=== PATIENT | female | born 1990 | race Caucasian/White ===

== ENCOUNTER 2016-09-23 18:28 | Emergency (ER) | payer MEDICAID ==
[~2016-09-23] VITALS: Ht 160 cm; Wt 94.5 kg
[2016-09-23 18:33] VITALS: BP 111/58
[2016-09-23] MEDS ORDERED: PRENATAL1 TA7 PO (18:37)
[2016-09-23] MEDS ORDERED: AMOXICILLIN 8751 TAB PO (19:36)
[2016-09-23 19:42] VITALS: TEMP 101
[2016-09-23 19:52] VITALS: PULSE 99
== END 2016-09-23 19:54 | disposition home or self-care (01) ==
LOC: COL.ER 18:28
DX: O99.511 Diseases of the respiratory system complicating pregnancy, first trimester (principal); Z3A.09 9 weeks gestation of pregnancy; J02.9 Acute pharyngitis, unspecified

== ENCOUNTER 2017-04-09 09:20 | Inpatient (IN) | payer MEDICAID ==
[~2017-04-09] VITALS: Ht 157.5 cm; Wt 103.2 kg
[~2017-04-09 09:20] MED LIST: AMOXICILLIN 8751 TAB PO; PRENATAL1 TA7 PO
[2017-04-24] VITALS (39 sets, daily range): BP systolic 95–137; BP diastolic 52–92; PULSE 65–93; TEMP 97.3–98.1
[2017-04-24 08:30] LABS: BASO % 0.1 % (0.0-2.0); EOS % 0.3 % (0-4.0); GRAN # 5.3 (1.4-6.5); GRAN % 76.8 % (42.2-75.2); LYMPH # 1.2 (1.2-3.4); LYMPH % 16.8 % (20.0-51.0); MEAN CELL VOLUME 86 fl (80.0-100.0); MEAN CORPUSCULAR HGB CONC 32 g/dl (33.0-37.0); MEAN PLATELET VOLUME 12.3 fl (7.4-10.4); MONO # 0.4 (0.1-0.6); MONO % 5.4 % (1.7-9.3); PLATELET COUNT 132 K/mm3 (130-400); RED BLOOD COUNT 3.86 M/mm3 (4.10-5.30); REDCELL DISTRIBUTION WIDTH-CV 14.4 % (11.5-14.5)
[2017-04-24 08:40] LABS: HEMATOCRIT 33.3 % (37.0-47.0); HEMOGLOBIN 10.8 g/dl (12.5-16.0); MEAN CORPUSCULAR HEMOGLOBIN 28 pg (27.0-31.0)
[2017-04-24] MEDS ORDERED: PERCOCET 325 MG1 TA2 PO (09:23)
[2017-04-24] MEDS ORDERED: MOTRIN 800800 MG/TAB PO (09:23)
[2017-04-25 07:45] VITALS: BP 121/60; PULSE 81; TEMP 98.5
[2017-04-25 16:10] VITALS: BP 113/80; PULSE 66; TEMP 97.7
[2017-04-25 20:30] VITALS: BP 117/62; PULSE 67; TEMP 97.7
[2017-04-26 07:06] VITALS: BP 114/71; PULSE 67; TEMP 98
== END 2017-04-26 16:30 | disposition home or self-care (01) | DRG 775 ==
LOC: LDR 04-24 06:51 → OB 04-24 16:45 → EDSTATUS 05-01 06:31 → LDRO 05-01 09:19
PROVIDERS: Obstetrics & Gynecology
PROC: 10E0XZZ Delivery of Products of Conception, External Approach (ICD-10-PCS; principal; 2017-04-24)
PROC: 0HQ9XZZ Repair Perineum Skin, External Approach (ICD-10-PCS; 2017-04-24)
DX: O99.824 Streptococcus B carrier state complicating childbirth (principal); O69.2XX0 Labor and delivery complicated by other cord entanglement, with compression, not applicable or unspecified; O70.0 First degree perineal laceration during delivery; Z3A.39 39 weeks gestation of pregnancy; Z37.0 Single live birth
CPT/HCPCS: J2540; J2590; J7060; J7120

== ENCOUNTER 2018-03-10 11:00 | Outpatient (CLI) | payer MEDICAID ==
[~2018-03-10] VITALS: Ht 160 cm; Wt 115.9 kg
[~2018-03-10 11:00] MED LIST changes: +MOTRIN 800800 MG/TAB PO; +PERCOCET 325 MG1 TA2 PO
[2018-03-10 11:20] VITALS: BP 109/67; PULSE 120; TEMP 99.2
[2018-03-10] MEDS ORDERED: ZOLOFT 100MG100 MG PO (11:28)
[2018-03-10 11:30] VITALS: BP 109/67; PULSE 107; TEMP 99.2
[2018-03-10 12:00] VITALS: BP 109/67; PULSE 120
[2018-03-10 13:32] VITALS: BP 117/59; PULSE 111
== END 2018-03-10 13:40 | disposition home or self-care (01) ==
LOC: LDRO 11:00 → LDR 13:15 → LDRO 13:40
DX: O62.9 Abnormality of forces of labor, unspecified (principal); Z3A.34 34 weeks gestation of pregnancy

== ENCOUNTER 2018-04-06 19:39 | Outpatient (CLI) | payer MEDICAID ==
[~2018-04-06] VITALS: Ht 160 cm; Wt 114.1 kg
[~2018-04-06 19:39] MED LIST changes: +ZOLOFT 100MG100 MG PO
--- NOTE | 2018-04-06 19:45 | NUR ---
Pt arrives to hospital by wheelchair with complaint of contractions every 5 minutes apart and passing a quarter size blood clot at home. Pt is a and is 38 weeks and 1 day. Has had all vaginal deliveries with no complications. Pt oriented to room. Clean gown on. EFM and toco explained and applied. Plan of care reviewed. Vital signs obtained and admission assessment started. 1950/-[address] Wellington on unit and notified.
[2018-04-06 20:15] VITALS: BP 111/68; PULSE 99; TEMP 98.3
[2018-04-06 20:30] VITALS: BP 107/57; PULSE 96
[2018-04-06 20:45] VITALS: BP 105/55; PULSE 89
--- NOTE | 2018-04-06 20:51 | NUR ---
SVE unchanged from previous exam. No bright red blood noted on chux. Old blood on check glove. Dr. Wellington notified, see physician notification.
[2018-04-06 21:05] VITALS: BP 134/78; PULSE 92
--- NOTE | 2018-04-06 21:05 | NUR ---
Pt ok to discharge home at this time. When discussing discharge instructions, pt became very upset stating that she was really wanting to get checked out by a doctor. Explained to patient that when you come in as a labor check, a nurse sees the patient and reports off to doctor. Explained to patient that the doctors only come in if there is something wrong and patient and baby are stable at this time. Pt not happy with discharge orders but is agreeable to discharge home. Return precautions reviewed, pt verbalized understanding. Pt seen ambulating off unit with family.
== END 2018-04-06 21:15 | disposition home or self-care (01) ==
LOC: LDRO 19:39 → LDR 20:06 → LDRO 21:15
DX: O62.9 Abnormality of forces of labor, unspecified (principal); Z3A.38 38 weeks gestation of pregnancy
CPT/HCPCS: OP

== ENCOUNTER 2018-04-07 06:09 | Inpatient (IN) | payer MEDICAID ==
[2018-04-07] VITALS (28 sets, daily range): BP systolic 103–138; BP diastolic 55–81; PULSE 72–96; TEMP 97.5–98.8
[~2018-04-07] VITALS: Ht 160 cm; Wt 113.9 kg
--- NOTE | 2018-04-07 06:37 | NUR ---
0605 PT ARRIVES VIA WC WITH PAINFUL CONTRACITONS. TO BED GOWN ON AND MONITORS PLACED. SVE SHOWS [address] BRIGHT AND DR INGRAM CALLED AND ORDERS REC'D BY Oscar BEARD. 0625 IV STARETED .LABS OBTAINED. 0630 VANCOMYCIN STARTED VIA PUM P.
[2018-04-07 06:49] LABS: BASO % 0.2 % (0.0-2.0); GRAN # 10.1 (1.4-6.5); GRAN % 83.2 % (42.2-75.2); HEMATOCRIT 35.3 % (37.0-47.0); HEMOGLOBIN 11.6 g/dl (12.5-16.0); LYMPH # 1.2 (1.2-3.4); LYMPH % 10.1 % (20.0-51.0); MEAN CELL VOLUME 84 fl (80.0-100.0); MEAN CORPUSCULAR HEMOGLOBIN 28 pg (27.0-31.0); MEAN CORPUSCULAR HGB CONC 33 g/dl (33.0-37.0); MEAN PLATELET VOLUME 12.3 fl (7.4-10.4); MONO # 0.7 (0.1-0.6); PLATELET COUNT 127 K/mm3 (130-400); REDCELL DISTRIBUTION WIDTH-CV 14.1 % (11.5-14.5)
--- NOTE | 2018-04-07 08:19 | NUR ---
0700 REID GRUBER TO GET PT COMFORTABLE WITH EPIDURAL PLACEMENT.
--- NOTE | 2018-04-07 08:21 | NUR ---
0702 Wade MORRISON HERE AND PT SET UP FOR EPIDURAL PLACEMENT. 0713 SINGLE SHOT DOSE GIVEN AND PT TOLERATED WELL. 0720 PT REPOSITIONED IN BED WITH PILLOW UNDER RT HIP.
--- NOTE | 2018-04-07 08:42 | NUR ---
PT SLEEP[ING QUIETLY.
--- NOTE | 2018-04-07 08:45 | NUR ---
0815 DR DOS SANTOS NOTIFIED VIA PC TO Sharad SARMIENTO CRNA REGARDING PT PRESENCE ON UNIT AND STATUS.
--- NOTE | 2018-04-07 08:46 | NUR ---
0858 DR INGRAM REACHED BY PHONE AND IS AVAILALBE FOR DELIVERY IF NEEDED PRIOR TO DR DOS SANTOS BEING DONE WITH GÉNESIS. STATUS REPORT GIVEN.
--- NOTE | 2018-04-07 10:12 | NUR ---
0930 Continues to be comfortable and sleeping quietly
--- NOTE | 2018-04-07 10:14 | NUR ---
1005 CISNEROS CATH PLACED WITH RETURN OF TANIA URINE. SVE SHOWS NOW COMPLTE BUT PRESENTING PART STILL -2. BOW INTACT AND BULGES WITH CONTRACTIONS.
--- NOTE | 2018-04-07 12:29 | NUR ---
1055 DR DOS SANTOS ON UNIT
--- NOTE | 2018-04-07 12:31 | NUR ---
1110 DR DOS SANTOS IN ROOM. 1114 AROM WITH RETURN OF CLEAR FLUID. PRESENTING PART STILL -2.
--- NOTE | 2018-04-07 12:34 | NUR ---
1125 SVE SHOWS PRESENTING PRT NOW +2 STATION WITH PRESSURE NOTED BY PT. NO STRONG URGE TO PUSH. 1137 DR DOS SANTOS ON UNIT AND INTO ROOM FOR DELIVERY. CISNEROS CATH REMOVED EASILY WITH TIP INTACT 1138 PT SET UP FOR DELIVERY AND PERINEUM PREPPED WITH SOAPY WATER. NSY NOTIFIED. 1141 DELIVERY OF MALE WITH ONE PUSH. SPONT RESP NOTED. INFANT BULB SUCTIONED. DRIED AND PLACED ON MOM'S ABD. CORD CLAMPED AND CUT. FURTHER ATTENTION OF INFANT BY ROSI RN. 1143 PITOCIN STARTED AT 333mU/MIN VIA PUMP AND PLACENTA DELIVERS SPONT AND INTACT. INFANT TO WARMER PER MOM'S REQUEST. DECLINES SKIN TO SKIN. 1145 SMALL 1ST DEGREE LAC BEING REPAIRED. 1155 REPAIR COMPLETED. ICE PACK TO PERINEUM. BED TOGETHER AND WARM BLANKETS PROVIDED. 1205 TALKING ON PHONE WHILE FAMILY MEMEBER HOLDS . MOTRIN 600 MG PO FOR CONTROL OF PAIN.
--- NOTE | 2018-04-07 13:00 | NUR ---
1215 VISITS ON P[JUAN WITH FAMILY MEMBER
--- NOTE | 2018-04-07 13:00 | NUR ---
1230 FEEDING INFANT BOTTLE. DENIES NEEDS.
--- NOTE | 2018-04-07 13:01 | NUR ---
4954 FAMILY IN TO SEE PT AND .
--- NOTE | 2018-04-07 16:07 | NUR ---
1420 IV TO INT. EPIDRUAL CATH REMOVED. ASSITED TO BR TO VOID AND PERICARE AND TUCK INSTRUCTIONS GIVEN. CLEAN GOWN ON AND TRANSFERRED TO 214 VIA . ORIENTATED TO SURROUNDING.
--- NOTE | 2018-04-07 16:07 | NUR ---
1345 EATING LUNCH. DENIES NEEDS.
[2018-04-08 00:30] VITALS: BP 92/55; PULSE 75; TEMP 97.8
[2018-04-08 04:15] VITALS: BP 88/46; PULSE 75; TEMP 97.6
[2018-04-08] MEDS ORDERED: MOTRIN 800800 MG/TAB PO (07:25)
[2018-04-08] MEDS ORDERED: PERCOCET 325 MG1 TA2 PO (07:25)
--- NOTE | 2018-04-08 07:30 | NUR ---
Rests in bed, alert. Denies any needs at this time. Baby in crib at bedside.
[2018-04-08 07:45] VITALS: BP 95/55; PULSE 76; TEMP 98.5
--- NOTE | 2018-04-08 09:11 | NUR ---
Initial visit; Mom thanked for offering congratulations for the of her son and for thanking her for choosing [facility].
[2018-04-08 11:00] VITALS: BP 105/59; PULSE 82; TEMP 97.2
--- NOTE | 2018-04-08 11:30 | NUR ---
Rests in bed, alert. Denies any needs at this time.
--- NOTE | 2018-04-08 14:15 | NUR ---
Rests in bed, alert. Denies any needs at this time.
[2018-04-08 16:15] VITALS: BP 127/68; PULSE 77; TEMP 98
[2018-04-08 20:30] VITALS: BP 121/74; PULSE 72; TEMP 98.9
[2018-04-09 09:23] VITALS: BP 118/64; PULSE 81; TEMP 98.3
== END 2018-04-09 13:20 | disposition home or self-care (01) | DRG 806 ==
LOC: LDRO 06:09 → LDR 06:24 → OB 06:24
PROVIDERS: Obstetrics & Gynecology; ADMIT Obstetrics & Gynecology
PROC: 10E0XZZ Delivery of Products of Conception, External Approach (ICD-10-PCS; principal; 2018-04-07)
PROC: 0HQ9XZZ Repair Perineum Skin, External Approach (ICD-10-PCS; 2018-04-07)
DX: O70.0 First degree perineal laceration during delivery (principal); O99.12 Other diseases of the blood and blood-forming organs and certain disorders involving the immune mechanism complicating childbirth; Z37.0 Single live birth; Z3A.38 38 weeks gestation of pregnancy; O99.214 Obesity complicating childbirth; O99.344 Other mental disorders complicating childbirth; F41.8 Other specified anxiety disorders; F20.9 Schizophrenia, unspecified; J45.909 Unspecified asthma, uncomplicated; O99.824 Streptococcus B carrier state complicating childbirth; Z88.0 Allergy status to penicillin
CPT/HCPCS: OP; J2590; J2795; J3370; J7050; J7120

== ENCOUNTER 2019-03-31 22:04 | Inpatient (IN) | payer MEDICAID ==
[~2019-03-31] VITALS: Wt 117.3 kg
[2019-03-31 22:09] VITALS: BP 148/80; PULSE 111; TEMP 98.4
--- NOTE | 2019-03-31 22:10 | NUR ---
HERE FOR LABOR CHECK. SAYS FOB DOES NOT LIKE BLOOD AND WILL NOT BE HERE FOR DELIVERY. GRANDMOTHER IN LAW AND AUNT WILL BE HERE FOR DELIVERY. VERY UNCOMFORTABLE WITH CTX. HOPES FOR EPIDURAL SOON.
[2019-03-31 22:22] VITALS: BP 148/68; PULSE 101; TEMP 98.1
[2019-03-31 23:36] LABS: BASO % 0.2 % (0.0-2.0); EOS % 0.2 % (0-4.0); GRAN # 8.3 (1.4-6.5); GRAN % 82.4 % (42.2-75.2); HEMOGLOBIN 11.4 g/dl (12.5-16.0); LYMPH # 1.1 (1.2-3.4); LYMPH % 10.6 % (20.0-51.0); MEAN CELL VOLUME 85 fl (80.0-100.0); MEAN CORPUSCULAR HEMOGLOBIN 28 pg (27.0-31.0); MEAN CORPUSCULAR HGB CONC 32 g/dl (33.0-37.0); MEAN PLATELET VOLUME 12.3 fl (7.4-10.4); MONO # 0.6 (0.1-0.6); MONO % 6.2 % (1.7-9.3); PLATELET COUNT 169 K/mm3 (130-400); RED BLOOD COUNT 4.14 M/mm3 (4.10-5.30); REDCELL DISTRIBUTION WIDTH-CV 14.5 % (11.5-14.5)
[2019-03-31 23:37] LABS: HEMATOCRIT 35.2 % (37.0-47.0)
--- NOTE | 2019-03-31 23:40 | NUR ---
SEATED FOR EPIDURAL- AUNT SUPPORTIVE [address] [place] HERE MUCH ASSIST TO PUSH EFFECTIVELY 0046 FEMALE SEE NSY RECORD 0045 MOTRIN AND SNACK. FAMILY HAS LEFT HOLDS BABY WITH CARE
[2019-04-01] VITALS (11 sets, daily range): BP systolic 111–135; BP diastolic 58–86; PULSE 65–95; TEMP 97.8–98.2
[2019-04-01] MEDS ORDERED: MOTRIN 800800 MG/TAB PO (00:18)
--- NOTE | 2019-04-01 10:30 | NUR ---
Intial visit; Patient thanked Director Security Risk Management for offering congratulations and God's blessings for the of her daughter. Director Security Risk Management thanked family for choosing [facility].
[2019-04-02] VITALS: BP 112/72; PULSE 79; TEMP 98.1
[2019-04-02 08:15] VITALS: BP 127/81; PULSE 84; TEMP 98.2
--- NOTE | 2019-04-02 12:00 | NUR ---
Discharge instructions given, pt verbalizes understanding. Bands matched and hugs tag removed.
--- NOTE | 2019-04-04 09:27 | NUR ---
On 04/01/19, healthcare social worker met with patient and completed assessment. Patient states she lives with the father of her baby and that he does not work and watches the children. Patient states she gave her child (6y/o) up for adoption and has a 7,2,1 year olds at home. 7 year old attends 1st grade and patient states she has [employer] for her 1 and 2 year olds. [employer] sends worker to the home 1x weekly. Patient states she is enrolled in WIC program in the [place]. Worker collaborated with Dr Zepeda and arranged for [facility] RN to visit patient weekly and monitor growth, feeding, and weights. First appointment is 04/04/19 at 10:00am. Patient verbalizes agreement with this plan. Dr Zepeda requested home health services, and is aware that patient's infant did not qualify for this and that patient will receive weekly weights faxed to her office from visiting RN, Leana Barrientos #[phone]. Patient states she has car seat and all needed equipment for her baby. Patient denies that the father of her baby has been incarcerated and needs to report back to senior care. Worker discussed this with Dr Zepeda, who had a conversation with patient and confirmed that patient did admit incarceration with her. Dr Zepeda stated that patient's 1 year old had issues with failure to thrive, including coding and a police investigation. Worker filed a CPS report #[id number] for lack of resources and support.
--- NOTE | 2019-04-04 09:36 | NUR ---
Patient's infant's cord blood was negative for illegal drugs in system.
== END 2019-04-02 12:10 | disposition home or self-care (01) | DRG 807 ==
LOC: LDRO 22:04 → LDR 22:10 → LDRO 22:49 → LDR 22:50 → OB 22:50
PROVIDERS: ADMIT Obstetrics & Gynecology
PROC: 10E0XZZ Delivery of Products of Conception, External Approach (ICD-10-PCS; principal; 2019-04-01)
DX: O99.344 Other mental disorders complicating childbirth (principal); Z37.0 Single live birth; F41.8 Other specified anxiety disorders; Z3A.38 38 weeks gestation of pregnancy; O99.214 Obesity complicating childbirth; O71.89 Other specified obstetric trauma
CPT/HCPCS: J2590; J2795; J7120

== ENCOUNTER 2020-10-06 20:41 | Emergency (ER) | payer MEDICAID ==
[~2020-10-06] VITALS: Ht 160 cm; Wt 112.3 kg
[2020-10-06 20:57] VITALS: TEMP 96.9
[2020-10-06] MEDS ORDERED: CRUTCHES MC (22:55)
[2020-10-06] MEDS ORDERED: MOTRIN 800800 MG/TAB PO (22:55)
[2020-10-06 23:40] VITALS: BP 121/70; PULSE 76
== END 2020-10-07 00:11 | disposition home or self-care (01) ==
LOC: COL.ER 20:41
DX: S93.602A Unspecified sprain of left foot, initial encounter (principal); Z88.6 Allergy status to analgesic agent; W01.0XXA Fall on same level from slipping, tripping and stumbling without subsequent striking against object, initial encounter; Y93.01 Activity, walking, marching and hiking; Y92.009 Unspecified place in unspecified non-institutional (private) residence as the place of occurrence of the external cause

== ENCOUNTER 2020-12-14 05:12 | Day surgery (SDC) | payer MEDICAID ==
[2020-12-14] VITALS (11 sets, daily range): BP systolic 99–110; BP diastolic 54–77; PULSE 70–102; TEMP 97.7–98.3
[~2020-12-14] VITALS: Ht 157.5 cm; Wt 111.4 kg
[~2020-12-14 05:12] MED LIST changes: +CRUTCHES MC
[2020-12-14] MEDS ORDERED: ADIPEX-P37.5 M2 PO (05:37)
[2020-12-14] MEDS ORDERED: COLACE 100100 MG/CAP PO (05:38)
[2020-12-14] MEDS ORDERED: MOTRIN 800800 MG/TAB PO (07:12)
[2020-12-14] MEDS ORDERED: PERCOCET 325 MG1 TA2 PO (07:12)
[2020-12-15 02:00] VITALS: BP 94/55; PULSE 92; TEMP 97.9
[2020-12-15 07:35] VITALS: BP 93/63; PULSE 79
--- NOTE | 2020-12-15 09:51 | NUR ---
0945 DISCHARGE INSTRUCTIONS REVIEWED WITH PATIENT. PATIENT VERBALIZED UNDERSTANDING. PATIENT WILL GET DRESSED, GATHER BELONGINGS, AND NOTIFY THIS RN WHEN RIDE IS HERE.
--- NOTE | 2020-12-15 10:08 | NUR ---
1000 ALL PERSONAL BELONGINGS GATHERED FROM PATIENT ROOM. PATIENT LEFT IN WHEELCHAIR AND IN NO APPARENT DISTRESS. PATIENT ACCOMPANIED BY THIS RN.
== END 2020-12-15 10:00 | disposition home or self-care (01) ==
LOC: SDCO 05:12 → OB 13:00 → SDCO 12-15 10:00
DX: N94.6 Dysmenorrhea, unspecified (principal); J45.909 Unspecified asthma, uncomplicated; K21.9 Gastro-esophageal reflux disease without esophagitis; F32.9 Major depressive disorder, single episode, unspecified; F41.9 Anxiety disorder, unspecified; Z79.899 Other long term (current) drug therapy; Z83.3 Family history of diabetes mellitus; Z82.49 Family history of ischemic heart disease and other diseases of the circulatory system; Z80.1 Family history of malignant neoplasm of trachea, bronchus and lung; Z80.49 Family history of malignant neoplasm of other genital organs; Z80.51 Family history of malignant neoplasm of kidney; Z80.3 Family history of malignant neoplasm of breast
CPT/HCPCS: OP; A4314; J1170; J1580; J1885; J2270; J2405; J2550; J2704; J2710; J3010; J7120